=== PATIENT | female | born 1950 | race Caucasian/White ===

== ENCOUNTER → 2021-08-26 | Day surgery (SDC) | payer MEDICARE, OTHER ==
[~2021-08-26] VITALS: Ht 157.5 cm; Wt 71.5 kg
[~2021-08-26] MED LIST: ACETAMINOPHEN12.5 ML PO; ALDACTONE50 MG PO; ATIVAN0.5 M1 PO; ESTRACE1 MG PO; LOSARTAN-HCTZ1 EAC2 PO; MYSOLINE50 MG PO; PROZAC20 MG PO; SINEQUAN50 MG PO; SYNTHROID88 MCG PO; ZOCOR20 MG PO
[2021-08-26 09:18] LABS: HCT 41.1 % (37.0-47.0); HGB 13.9 g/dl (12.5-16.0); MCH 31.6 pg (25.0-31.0); MCHC 33.8 g/dL (32.0-36.0); MCV 93.4 fL (78.0-100.0); MPV 9.8 fL (6.0-9.5); RBC 4.4 M/uL (4.20-5.40); RDW 13.4 % (11.5-14.0); WBC 9.5 K/uL (4.0-10.5)
[2021-08-26 09:26] LABS: ALBUMIN 3.9 g/dL (3.4-5.0); BILIRUBIN - TOTAL 0.5 mg/dL (0.2-1.0); BUN/CREAT RATIO (CALC) 10.7 RATIO; CREATININE 0.84 mg/dL (0.51-0.95); GLOBULIN (CALCULATION) 3.7 g/dL; TOTAL PROTEIN 7.6 g/dL (6.4-8.2)
== END | disposition home or self-care (01) ==
LOC: FAS 08:16
PROVIDERS: Surgery
DX: K57.30 Diverticulosis of large intestine without perforation or abscess without bleeding (principal); R15.1 Fecal smearing; I10 Essential (primary) hypertension; E03.9 Hypothyroidism, unspecified; E78.00 Pure hypercholesterolemia, unspecified; E78.5 Hyperlipidemia, unspecified; Z88.2 Allergy status to sulfonamides; Z91.048 Other nonmedicinal substance allergy status; Z79.899 Other long term (current) drug therapy
CPT/HCPCS: 36415; 80053; J1610; J2250; J2704; J7120